=== PATIENT | male | born 1965 | race African-American/Black ===

== ENCOUNTER 2016-09-29 09:30 | Inpatient (IN) ==
[2016-09-29 10:12] LABS: Basophils % 0.3 % (0.0-0.8); Eosinophils # 0.1 10*3/uL (0.0-0.87); Eosinophils % 1.4 % (0.00-10.9); Hematocrit 50.6 VOL% (42.0-52.0); Hemoglobin 15.9 GM/DL (14.0-18.0); Immature Granulocytes % 0.3 %; Immature Granulocytes Absolute 0.01 #; Lymphocytes # 0.9 10*3/uL (1.4-4.0); Lymphocytes % 25.4 % (21.2-54.2); Mean Corpuscular HGB Conc 31.4 GM/DL (32-36); Mean Corpuscular Hemoglobin 23 PG (27-34); Mean Corpuscular Volume 74.5 FL (87-102); Mean Platelet Volume 11.6 FL (9.6-12.0); Monocytes # 0.7 10*3/uL (0.11-0.8); Monocytes % 19.8 % (1.7-12.7); NRBC # 0.04 10*3/uL; Neutrophils # 1.9 10*3/uL (1.4-7.4); Neutrophils % 52.8 % (38.7-73.9); Platelet Count 207 T/CUMM (130-400); Red Blood Count 6.79 MC/CUMM (3.8-5.5); Red Cell Distribution Width 16.8 % (9.3-17.3); White Blood Count 3.6 T/CUMM (4-12)
[2016-09-29 10:18] LABS: Apearance,Urine CLEAR (Clear); Bilirubin,Urine Negative (Negative); Blood, Urine Negative (Negative); Glucose,Urine (UA) Negative (Negative); Hyaline Casts,Urine 4 /LPF (0-3); Ketones,Urine Negative (Negative); Mucus,Urine Occasional /LPF (Occasional); Nitrite,Urine Negative (Negative); Protein,Urine 100 MG/DL; RBC,Urine <1 /HPF (0-4); Squamous Epithelial Cell,Urine Occasional /HPF (0-10); Urine Color Yellow (Yellow); Urine Specific Gravity 1.005 (1.001-1.035); Urine Urobilinogen < 2.0 EU/DL (0.2-1.0); WBC,Urine 1 /HPF (0-6)
[2016-09-29 10:23] LABS: INR 1.1; PT Patient Result 11.4 SECS
--- NOTE | 2016-09-29 10:28 | EKG Report ---
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
[2016-09-29 10:30] LABS: Calcium 9.5 MG/DL (8.5-10.1); Magnesium 1.9 MG/DL (1.8-2.4); Osmolality,Calculated 274.8 MOS/KG (273-304); Potassium 4.2 MMOL/L (3.5-5.1)
[2016-09-29] MEDS ORDERED: ASPIRIN 325 MG TABLET PO STA (10:30)
[2016-09-29 10:31] LABS: Troponin I Only 0.137 NG/ML (0.00-0.045)
[2016-09-29] MEDS ORDERED: ENOXAPARIN 80 MG/0.8 ML SYRINGE SUBCUT STA (10:34)
--- NOTE | 2016-09-29 10:47 | CT Report ---
CT head/brain wo con Indication: Right-sided numbness, [address] BRAIN WITHOUT CONTRAST DLP: 970 mGy*cm. One or more of the following dose reduction techniques was used: Automated exposure control, adjustment of the mA and/or kV according the patient size, or use of iterative reconstruction techniques. Comparison: None. Date of admission: 09/29/2016. Technique: Axial noncontrast CT images of the brain were obtained. Findings: Loss of gomez-white junction with hypoattenuation involves the left occipital lobe. Elsewhere, gomez-white junction is maintained. Basal ganglia structures are intact. No acute hemorrhage, mass or mass effect. No volume loss. No bone lesions. Visualized sinuses and mastoid air cells are clear. Impression: Subacute to chronic infarct left occipital lobe. PROCEDURE INTERPRETED AT [facility] DEPARTMENT OF RADIOLOGY Final Report Signed by: Mo Burnett M.D.
--- NOTE | 2016-09-29 10:47 | XRay Report ---
XR chest 1V portable Indication: Weakness. Chest one view: Heart size and mediastinal contour are normal. Lungs are hypoinflated but generally clear, except for minimal bibasilar atelectasis. Pleural spaces are clear. Bones are intact. Impression: Mild pulmonary hypoinflation with atelectasis. PROCEDURE INTERPRETED AT [facility] DEPARTMENT OF RADIOLOGY Final Report Signed by: Mo Burnett M.D.
[2016-09-29 11:04] LABS: Eosinophils 3 % (0-10); Lymphocytes 27 % (20-55); Segmented Neutrophils 57 % (50-85); Total Cells Counted 100
[2016-09-29 11:09] LABS: Anisocytosis 1+; Hypochromasia 1+; Microcytosis 1+; Ovalocytes Few; Platelet Estimate Normal
--- NOTE | 2016-09-29 11:11 | EKG Report ---
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
--- NOTE | 2016-09-29 11:21 | Emergency Department Note ---
IKeyur Brooke, am scribing for, and in the presence of, Darinel Garcia M.D. 10:29. IRadha Howard T, M.D., personally performed the services described in this documentation, ascribed by Yady Baer in my presence, and it is both accurate and complete . Arrival - Arrival Chief Complaint: Neuro Stated Complaint: whole right side numb ED Nursing Triage Note: Pt c/o numnbess in his right side (face, arm, and leg) x 2 days but worse last night. Also family member reports coughing and dizziness. Mode of Arrival: Ambulatory Limitations: No Limitations Source: Patient, RN Notes Reviewed Time Seen by Provider: 09/29/16 09:46 - History of Present Illness HPI Narrative: Patient is a 51 year old male who presents to the ED with c/o numbness to the right side of his body that started Friday morning. Patient says it felt like he was "dragging" his right leg when walking. Only the 4th and 5th fingers on his hand were numb and he describes it as "my blood not circulating good." Patient says the numbness in the right side of his face is getting better. He is able to move right upper and lower extremities without any problems. Patient says his vision was blurry but the vision is better now. Patient says he was working this weekend and just wanted to wait to see if these symptoms would get better but he decided he needed to come to the ED today. Patient denies having any pain. He has PMHx of HTN and cardiac dysrhythmia. Patient is a smoker. Onset (ago): day(s) (3) Allergies/Adverse Reactions: Allergies Allergy/AdvReac Type Severity Reaction Status Date / Time No Known Allergies Allergy Verified 12/24/15 10:20 Home Medications: Home Medications Medication Instructions Recorded Confirmed Type Atorvastatin [Lipitor] 10 mg PO BEDTIME 09/29/16 09/29/16 History Carvedilol [Coreg] 6.25 mg PO BID 09/29/16 09/29/16 History Furosemide Tab [Lasix Tab] 40 mg PO DAILY 09/29/16 09/29/16 History Lisinopril/Hydrochlorothiazide 1 each PO DAILY 09/29/16 09/29/16 History [Lisinopril-Hctz 10-12.5 mg Tab] Review of System - Review of System 12 point system: reviewed and no additional remarkable complaints except as stated - Review of System Constitutional: Absent: fever Eyes: Present: vision change (blurry but better now) Respiratory: Absent: respiratory distress Skin: Absent: rash Neurological: Present: numbness (right side of body) Medical,Surgical,& Family Hx - Medical History Cardio: History of: Cardiac Dysrhythmia, Hypertension - Family History Family History: Reports;: Family Cancer - Social History Smoking Status: Current every day smoker Exam Vital Signs: Vital Signs Temperature 96.9 F L 09/29/16 09:45 Pulse Rate 95 H 09/29/16 09:45 Respiratory Rate 20 09/29/16 09:45 Blood Pressure 151/130 09/29/16 09:45 O2 Sat by Pulse Oximetry 96 09/29/16 09:36 - General General appearance: alert, in no apparent distress - Head Head exam: Present: atraumatic, normocephalic - Eye Eye exam: Present: normal appearance, PERRL, EOMI - ENT ENT exam: Present: normal exam - Neck Neck exam: Present: normal inspection - Chest Chest inspection: Present: normal inspection, symmetric chest wall rise - Respiratory Respiratory exam: Present: normal lung sounds bilaterally - Cardiovascular Cardiovascular exam: Present: regular rate, normal rhythm, normal heart sounds - Abdominal Exam Abdominal exam: Present: soft. Absent: distention, tenderness - Extremities Exam Extremities exam: Present: normal inspection - Back Exam Back exam: Present: normal inspection - Neurological Exam Neurological exam: Present: alert, oriented X3, CN II-XII intact - Psychiatric Psychiatric exam: Present: normal affect, normal mood - Skin Skin exam: Present: warm, dry, intact, normal color Course Course Narrative: Medical decision making: History exam is consistent with stroke likely due to high blood pressure and A. fib, admitted to hospital service for further evaluation cardiology consult and neurology consult. - Reevaluation(s) Reevaluation #1: Repeat EKG still shows nonspecific ST changes without acute STEMI, A. fib, heart rate about 85. Results - Labs CBC & BMP: 09/29/16 09:49 09/29/16 09:49 Lab Results: I have reviewed the patients labs - EKG EKG results: interpreted by ERMD EKG shows: atrial fibrillation (92HR, nonspecific ST changes) - Diagnostic Findings Procedure: Chest x-ray: image reviewed by me (no acute), CT: report reviewed by me (head: subacute infarct L occ lobe) Disposition Clinical Impression: Cerebrovascular accident Case discussed with: patient Disposition: Still a Patient Condition: Stable Time of Disposition: 11:21
[2016-09-29] MEDS ORDERED: guaiFENesin/DM ER 600-30 MG TABLET PO PRN (11:36)
[2016-09-29] MEDS ORDERED: LABETALOL 20 MG/4 ML SYRINGE IV PRN (11:36)
[2016-09-29] MEDS ORDERED: ONDANSETRON 4 MG/2 ML VIAL IV PRN (11:36)
[2016-09-29] MEDS ORDERED: ACETAMINOPHEN 325 MG TABLET PO PRN (11:36)
--- NOTE | 2016-09-29 11:50 | Hospitalist History & Physical ---
Assessment and Plan - Time spent with patient Time spent with patient: Greater than 30 minutes (1) Subacute left occipital lobe infarct Status: Acute Assessment and plan: Mr. England is a 51-year-old -[place] male with history of hypertension , hyperlipidemia and A. fib admitted by the hospitalist service with subacute left occipital stroke with right sided numbness and weakness, chest congestion, and A. fib with abnormal EKG. Patient is being admitted to telemetry with cardiology consult. Dr. Dennis has seen and examined patient and further recommendations to follow. Subacute stroke/right sided numbness and weakness--patient is stable at this time. We will get neurology consult in the morning, PT OT and speech consult, patient is being started on Eliquis for anticoagulation for further stroke prevention. We will also get ultrasound of the carotids, echo of the heart, and MRI of the brain. We are also ordering hemoglobin A1c, lipid panel, TSH. He was given a therapeutic dose of Lovenox in the ED. Monitor his blood pressure to avoid normotensive to increase perfusion to infarcted part of the brain. A. fib/T-wave abnormality--patient has had A. fib for 2 years and his primary care physician had started him on Coreg. We will add an aspirin and Eliquis now due to his subacute stroke. Will get a cardiology consult for his T-wave abnormality and elevated troponins. We will also get serial EKG and serial troponins as well. Hyperlipidemia--restart home meds and get lipid panel. Mild renal insufficiency--patient will be given hydration to see if this improves or if this is chronic. Patient has no knowledge of any kidney issues. Labs will be repeated in the morning Chest congestion--we will start this patient on some antibiotics, as needed breathing treatments, and Mucinex for his congestion. Current Visit: Yes (2) Hypertension Status: Acute Current Visit: Yes (3) Hyperlipidemia Status: Acute Current Visit: Yes (4) Renal insufficiency, mild Status: Acute Current Visit: Yes (5) Chest congestion Status: Acute Current Visit: Yes (6) Electrocardiogram showing T wave abnormalities Status: Acute Current Visit: Yes (7) A-fib Status: Acute Current Visit: Yes (8) Elevated troponin Status: Acute Current Visit: Yes History of Present Illness Chief complaint: Right sided weakness and numbness History of present illness: Mr. England is a 51 year old male with history of A. fib, hypertension, tobacco abuse and hyperlipidemia presenting to the ED with a 2-3 day history of weakness and numbness of the right arm and leg. Patient states he got off work Friday night and slept all day and most of Friday. 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 He states Friday when he woke up he was uncoordinated on his right leg and right arm and significantly weaker. He is also having some chest congestion and a cough that he took some decongestants for. Patient denies headache but he states he is also having some numbness right around the right mouth area. He is having no problems swallowing, no complaints of chest pain, but he is having some shortness of breath. No complaints of abdominal pain, diarrhea, constipation or lower extremity edema. He has A. fib on the monitor with rate controlled. His blood pressures are elevated at 151/130 and he did take his blood pressure medicines this morning. His labs are significant for a creatinine of 1.4 and troponin of 0.137. Head CT shows a subacute to chronic infarct of the left occipital lobe. His chest x- ray shows mild pulmonary hypoinflation with atelectasis. His first EKG showed A. fib with lateral myocardial infarction, recent acute PR. Repeat EKG shows nonspecific T-wave abnormality in A. fib. Upon exam, patient does have some coarse sounds bilaterally that improved after cough, heart irregularly irregular with rate controlled, good strength but uncoordinated on his right upper and lower extremities. Remainder of his neuro exam is normal. After discussion with Dr. Dennis the hospitalist and Dr. Garcia the ED physician, it was agreed patient would be admitted for further evaluation and treatment. Home Medications Medication Instructions Recorded Confirmed Type Atorvastatin [Lipitor] 10 mg PO BEDTIME 09/29/16 09/29/16 History Carvedilol [Coreg] 6.25 mg PO BID 09/29/16 09/29/16 History Furosemide Tab [Lasix Tab] 40 mg PO DAILY 09/29/16 09/29/16 History Lisinopril/Hydrochlorothiazide 1 each PO DAILY 09/29/16 09/29/16 History [Lisinopril-Hctz 10-12.5 mg Tab] Allergies Allergy/AdvReac Type Severity Reaction Status Date / Time No Known Allergies Allergy Verified 12/24/15 10:20 Medical,Surgical,& Family Hx - Medical History Cardio: History of: Cardiac Dysrhythmia, Hypertension Endocrine: History of: Dyslipidemia - Surgical History Additional Surgical History: Debridement of left lower extremity due to injury - Family History Family History: Reports;: Family Cancer - Social History Smoking Status: Current every day smoker Frequency of Alcohol Use: Occasionally Type of Drug Use: Marijuana Marital Status: Single Lives With:: Alone Functional capacity: independent ambulation Review of systems: A complete 10 system review of systems was obtained and pertinent positives and negatives per HPI Exam - Constitutional Vitals: Period Temp Pulse Resp BP Sys/Castellanos Pulse Ox Last 24 Hr 96.9 F-96.9 F 95-95 18-20 151-151/130-130 96 Exam: Constitutional System: No distress. No tremulousness. Head: Normocephalic, atraumatic. Ears, Nose and Throat System: No evidence of Otitis or Mastoiditis. No epistaxis or discharge Eyes System: Pupils equal, round, and reactive. Extraocular muscles intact. Neck: Supple, without adenopathy, No jugular venous distention. No thyromegaly, neck mass, or prior surgery apparent. Respiratory System: Chest coarse bilaterally to auscultation that clears with cough. Cardiovascular System: Heart with irregularly irregular rate and rhythm. No murmur. GI System: Abdomen soft, nontender. Normo active bowel sounds present. Multiple underwater welder spots Musculoskeletal System: limbs with no pedal edema. Full distal pulses. Neurological System: Numbness on the right upper and lower extremity sensory deficit. No aphasia, cranial nerves II through XII intact Psychiatric System: Conversation is rational Results - Labs CBC & BMP: 09/29/16 09:49 09/29/16 09:49 Lab Results: I have reviewed the past 24 hour labs - EKG EKG shows: atrial fibrillation - Impressions EKG done at 1027 shows A. fib with lateral PR acute. Second EKG done at 1110 shows A. fib with nonspecific T-wave abnormality - Diagnostic Findings Procedure: Chest x-ray: report reviewed by me (Mild pulmonary hypoinflation with atelectasis), CT - chest: report reviewed by me (CT of the head shows subacute to chronic infarct left occipital lobe) Quality Measures - Stroke Onset of Symptoms Date: 09/27/16 Onset of Symptoms Time: 08:00
[2016-09-29] MEDS ORDERED: ENOXAPARIN 40 MG/0.4 ML SYRINGE SUBCUT SCH (12:00)
[2016-09-29 12:17] LABS: Barbiturates Screen,Urine Negative (Negative); Benzodiazepines Screen,Urine Negative (Negative); Cannabinoid Screen,Urine Positive (Negative); Opiate Screen,Urine Positive (Negative); Phencyclidine Screen,Urine Negative (Negative)
[2016-09-29] MEDS: ALBUTEROL/IPRATROPIUM 3 ML NEB RESP TX PRN (12:22)
[2016-09-29] MEDS ORDERED: ASPIRIN 325 MG TABLET ONE (12:24)
[2016-09-29] MEDS ORDERED: ENOXAPARIN 80 MG/0.8 ML SYRINGE SUBCUT ONE (12:24)
[2016-09-29] MEDS ORDERED: SODIUM CHLORIDE 0.9% 1,000 ML IV SCH (13:00)
--- NOTE | 2016-09-29 13:46 | Ultrasound Report ---
US carotid duplex BI Indication: Stroke. CAROTID ULTRASOUND Comparison: None. Findings: Grayscale, color Doppler and pulsed Doppler interrogation of the carotid and vertebral arteries performed. Severity of stenosis based on flow velocity measurements using NASCET criteria. Distal right ICA diameter: 5.5 mm Distal left ICA diameter: 5.6 mm Peak systolic flow velocities in centimeters per second are as follows: Right: CCA: 29 cm/s Proximal ICA: 45 Distal ICA: 46 ICA/CCA ratio: 1.6 Left: CCA: 44 cm/s Proximal ICA: 23 Distal ICA: 75 ICA/CCA ratio: 1.7 External carotid arteries: Both are patent with antegrade flow. Vertebral arteries: Both are patent with antegrade flow. Grayscale and color Doppler images: No significant focal plaque deposition identified, with normal color Doppler flow present. Pulse Doppler waveform interrogation: No significant spectral broadening. Impression: No hemodynamically significant stenosis either ICA origin. PROCEDURE INTERPRETED AT [facility] DEPARTMENT OF RADIOLOGY Final Report Signed by: Mo Burnett M.D.
--- NOTE | 2016-09-29 17:31 | Cardiology Consult Note ---
Assessment and Plan (1) A-fib Status: Acute Assessment and plan: 1. 51-year-old BM smoker with uncontrolled hypertension, long history of atrial fibrillation, with decreased coordination on the right side and subacute left stroke on CT scan 2. Atrial fibrillation rate is reasonably controlled, will continue to monitor on Coreg 3. Given hypertension with BP systolic over 160, would add low-dose amlodipine 2.5 twice daily; neurology is consulted. 4. Would hold aspirin and Lovenox given he is now on Eliquis full dose 5. Check TSH, electrolytes, and lipid panel 6. Elevated BNP noted; this is most likely related to his having some RVR for a while associated with a stroke 7. Check echocardiogram in the morning Current Visit: Yes (2) Cerebrovascular accident Status: Acute Current Visit: Yes (3) Hypertension Status: Acute Current Visit: Yes History of Present Illness - Consult Narrative History of present illness: Mr. England is a 51 year old male who presented yesterday with poor coordination of his right side and was found to have left sided CVA on CT. He has had atrial fibrillation for many years. He denies any history of blood clots or bleeding problems before. He denies being on anticoagulation "I do not think so". He has not had chest pain or previous cardiac problems other than his atrial fibrillation. 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 He is not having shortness of breath. CC: Patrick Dennis MD - Home Medications and Allergies Home Medications: Home Medications Medication Instructions Recorded Confirmed Type Atorvastatin [Lipitor] 10 mg PO BEDTIME 09/29/16 09/29/16 History Carvedilol [Coreg] 6.25 mg PO BID 09/29/16 09/29/16 History Furosemide Tab [Lasix Tab] 40 mg PO DAILY 09/29/16 09/29/16 History Lisinopril/Hydrochlorothiazide 1 each PO DAILY 09/29/16 09/29/16 History [Lisinopril-Hctz 10-12.5 mg Tab] Allergies/Adverse Reactions: Allergies Allergy/AdvReac Type Severity Reaction Status Date / Time No Known Allergies Allergy Verified 12/24/15 10:20 Medical,Surgical,& Family Hx - Medical History Cardio: History of: Cardiac Dysrhythmia, Hypertension Endocrine: History of: Dyslipidemia - Family History Family History: Reports;: Family Cancer - Social History Smoking Status: Current every day smoker Frequency of Alcohol Use: Occasionally Type of Drug Use: Opiates, Marijuana Physical Examination Vital Signs Temp Pulse Resp BP Pulse Ox 96.9 F L 95 H 20 151/130 96 09/29/16 09:36 09/29/16 09:36 09/29/16 09:36 09/29/16 09:36 09/29/16 09:36 General: Present: Appears Well, No Apparent Distress, Other (He denies slurred speech but it seems a little bit off, and his memory is a little off?) Neck: Present: Supple Neck, No JVD/HJR Cardiac: Present: Irregularly Regular. Absent: Systolic Murmur, Diastolic Murmur Lungs: Present: Scattered Rhonchi. Absent: Wheezes Abdomen: Present: Soft, Non-Tender Extremities: Present: Other (Decreased right-sided coordination). Absent: Edema , Cool Result/EKG - Labs CBC & BMP: 09/29/16 09:49 09/29/16 09:49 Labs: Laboratory Results - last 24 hr 09/29/16 09/29/16 09/29/16 09:49 09:49 09:49 WBC 3.6 L RBC 6.79 H Hgb 15.9 Hct 50.6 MCV 74.5 L MCH 23 L MCHC 31.4 L RDW 16.8 Plt Count 207 MPV 11.6 Neut % (Auto) 52.8 Lymph % (Auto) 25.4 Milam % (Auto) 19.8 H Eos % (Auto) 1.4 Baso % (Auto) 0.3 Neut # (Auto) 1.9 Lymph # (Auto) 0.9 L [place] # (Auto) 0.7 Eos # (Auto) 0.1 Baso # (Auto) 0.0 Total Counted 100 Immature Gran % 0.3 Nucleated RBC % 1.1 Immature Gran # 0.01 Segmented Neutrophils 57 Lymphocytes 27 Monocytes 12 Eosinophils 3 Basophils 1.0 H Nucleated RBCs # 0.04 Platelet Estimate Normal Hypochromasia 1+ Anisocytosis 1+ Microcytosis 1+ Ovalocytes Few Morphology Comment INR 1.1 PT Patient/Control Mix 11.4 Sodium Potassium Chloride Carbon Dioxide Anion Gap BUN Creatinine GFR Calculation BUN/Creatinine Ratio Glucose Calculated Osmolality Calcium Magnesium Troponin I Urine Color Yellow Urine Appearance Clear Urine pH 5.0 Ur Specific [place] 1.005 Urine Protein 100 Urine Glucose (UA) Negative Urine Ketones Negative Urine Blood Negative Urine Nitrate Negative Urine Bilirubin Negative Urine Urobilinogen < 2.0 H Urine Leukocytes Negative Urine RBC <1 Urine WBC 1 Ur Squamous Epith Cells Occasional Hyaline Casts 4 Urine Mucus Occasional Ur Culture Indicated? Not indicated Urine Opiates Screen Ur Barbiturates Screen Ur Phencyclidine Scrn U Amphetamine/Methamph U Benzodiazepines Scrn U Cocaine Metab Screen U Cannabinoids Screen 09/29/16 09/29/16 09/29/16 09:49 13:59 Unknown WBC RBC Hgb Hct MCV MCH MCHC RDW Plt Count MPV Neut % (Auto) Lymph % (Auto) [place] % (Auto) Eos % (Auto) Baso % (Auto) Neut # (Auto) Lymph # (Auto) [place] # (Auto) Eos # (Auto) Baso # (Auto) Total Counted Immature Gran % Nucleated RBC % Immature Gran # Segmented Neutrophils Lymphocytes Monocytes Eosinophils Basophils Nucleated RBCs # Platelet Estimate Hypochromasia Anisocytosis Microcytosis Ovalocytes Morphology Comment INR PT Patient/Control Mix Sodium 137 Potassium 4.2 Chloride 99 Carbon Dioxide 34 H Anion Gap 8.2 BUN 14 Creatinine 1.40 H GFR Calculation 74 BUN/Creatinine Ratio 10.00 Glucose 112 H Calculated Osmolality 274.8 Calcium 9.5 Magnesium 1.9 Troponin I 0.137 H 0.115 H Urine Color Urine Appearance Urine pH Ur Specific [place] Urine Protein Urine Glucose (UA) Urine Ketones Urine Blood Urine Nitrate Urine Bilirubin Urine Urobilinogen Urine Leukocytes Urine RBC Urine WBC Ur Squamous Epith Cells Hyaline Casts Urine Mucus Ur Culture Indicated? Urine Opiates Screen Positive H Ur Barbiturates Screen Negative Ur Phencyclidine Scrn Negative U Amphetamine/Methamph Negative U Benzodiazepines Scrn Negative U Cocaine Metab Screen Negative U Cannabinoids Screen Positive H Quality Measures - Stroke Onset of Symptoms Date: 09/27/16 Onset of Symptoms Time: 08:00
[2016-09-29] MEDS: amLODIPine 2.5 MG TABLET PO SCH ×2 (17:53→21:29)
[2016-09-29] MEDS: CARVEDILOL 6.25 MG TABLET PO SCH (21:29)
[2016-09-29] MEDS: ATORVASTATIN 10 MG TABLET PO SCH (21:29)
[2016-09-29] MEDS: BENZONATATE 100 MG CAPSULE PO PRN (21:29)
[2016-09-30 04:31] LABS: Basophils % 0.5 % (0.0-0.8); Eosinophils % 0.8 % (0.00-10.9); Hematocrit 49.4 VOL% (42.0-52.0); Hemoglobin 15.4 GM/DL (14.0-18.0); Lymphocytes # 1.9 10*3/uL (1.4-4.0); Lymphocytes % 49.2 % (21.2-54.2); Mean Corpuscular HGB Conc 31.2 GM/DL (32-36); Mean Corpuscular Hemoglobin 23 PG (27-34); Mean Corpuscular Volume 74.1 FL (87-102); Mean Platelet Volume 11.2 FL (9.6-12.0); Monocytes # 0.8 10*3/uL (0.11-0.8); Monocytes % 19.7 % (1.7-12.7); NRBC # 0.03 10*3/uL; Neutrophils # 1.2 10*3/uL (1.4-7.4); Neutrophils % 29.8 % (38.7-73.9); Platelet Count 206 T/CUMM (130-400); Red Blood Count 6.67 MC/CUMM (3.8-5.5); Red Cell Distribution Width 16.3 % (9.3-17.3); White Blood Count 3.9 T/CUMM (4-12)
[2016-09-30 05:03] LABS: Calcium 9.1 MG/DL (8.5-10.1); Eosinophils 1 % (0-10); Lymphocytes 50 % (20-55); Osmolality,Calculated 277.5 MOS/KG (273-304); Potassium 4.8 MMOL/L (3.5-5.1); Segmented Neutrophils 26 % (50-85); Total Cells Counted 100
[2016-09-30 05:04] LABS: Hypochromasia 1+; Microcytosis 1+; Platelet Estimate Adequate
[2016-09-30 05:20] LABS: Risk Ratio 4.09; Thyroid Stimulating Hormone 0.916 uIU/ml (0.358-3.74); VLDL CHOLESTEROL 45.2 MG/DL
[2016-09-30] MEDS: LISINOPRIL/HCTZ 10-12.5 MG TABLET PO SCH (08:24)
[2016-09-30] MEDS: CARVEDILOL 6.25 MG TABLET PO SCH (08:24)
[2016-09-30] MEDS: AZITHROMYCIN 250 MG TABLET PO SCH (08:24)
[2016-09-30] MEDS: amLODIPine 2.5 MG TABLET PO SCH ×2 (08:25→21:06)
[2016-09-30] MEDS: PANTOPRAZOLE 40 MG TABLET PO SCH (08:25)
[2016-09-30] MEDS: APIXABAN 5 MG TABLET PO SCH ×2 (08:29→21:06)
[2016-09-30] MEDS ORDERED: ASPIRIN 325 MG TABLET PO SCH (09:00)
--- NOTE | 2016-09-30 10:39 | Cardiology Progress Note ---
<Lacy Strauss E - Last Filed: 09/30/16 10:12> Assessment and Plan - Time spent with patient Time spent with patient: Less than 30 minutes (1) Atrial fibrillation Status: Acute Assessment and plan: See plan of care listed below. Current Visit: Yes (2) Cerebrovascular accident Status: Acute Assessment and plan: See plan of care listed below. Current Visit: Yes (3) Hypertension Status: Chronic Assessment and plan: See plan of care listed below. Current Visit: Yes (4) Tobacco abuse Status: Chronic Assessment and plan: See plan of care listed below. Current Visit: Yes (5) Cannabis use disorder, mild, abuse Status: Chronic Assessment and plan: See plan of care listed below. Current Visit: Yes (6) Hyperlipidemia Status: Acute Assessment and plan: See plan of care listed below. Current Visit: Yes Cardiology - PN: Subj Interval history: Certified Orthotist/Pedorthist: new to Dr. Greenberg Mr. England is a 51-year-old -[place] male smoker with uncontrolled hypertension and atrial fibrillation who presented to the hospital on 09/28/2016 with poor coordination of his right side and was found to have a subacute left stroke on CT scan. We are consulted to see him due to atrial fibrillation and stroke. He has not previously been on anticoagulation. He was started on full dose Eliquis for stroke prevention. He has been on Coreg 6.25 mg p.o. twice daily at home. His TSH was normal. He did have some slight elevation of troponins. Lipid panel was checked and revealed triglycerides 226, cholesterol 184, LDL 100, HDL 45. Creatinine is 1.3, potassium 4.8, magnesium 2.0. Upon review of his telemetry rhythms, he did have some elevated rates in the 150s-160s yesterday. Rates today have been somewhat better controlled, mostly in the 90s-100s. He denies any chest pain, shortness of breath, palpitations. He does complain of cough and chest congestion. He does have a productive cough of white sputum. Blood cell count is 3.9. Has been afebrile since admission. He does have as needed breathing treatments ordered as well as Tessalon Perles for cough and he has also been started on a Z-Дмитрий. ASSESSMENT/PLAN: 1. ATRIAL FIBRILLATION -unsure whether this is chronic or paroxysmal. He has never been seen before in our clinic and the only other EKG on file at [facility] shows atrial fibrillation. Echocardiogram is pending. We will increase his dose of beta-joaquim to try to better control his heart rate. May consider changing his Norvasc to Cardizem if his heart rate remains difficult to control. Will further discuss with Dr. French and await his recommendations. 2. CEREBROVASCULAR ACCIDENT -neurology has been consulted. He was started on Eliquis 5 mg p.o. twice daily. Physical and Occupational Therapy were consulted. 3. HYPERTENSION -this has been uncontrolled. We will continue to monitor and adjust medications accordingly. 4. TOBACCO ABUSE -greater than 5 minutes was spent discussing the need for total tobacco cessation and the patient agrees. He reports he does not think this will be a problem for him. 5. CANNABIS USE -he agrees he must stop all smoking. 6. HYPERLIPIDEMIA -continue lipid lowering agent. Exam (Progress Note) - Constitutional Vitals: Period Temp Pulse Resp BP Sys/Castellanos Pulse Ox Last 24 Hr 96.8 F-98.7 F 74-97 14-23 135-168/80-134 94-99 Exam: General: Present: Appears Well, No Apparent Distress. Pleasant and cooperative. Appears comfortable. HEENT: Present: PERRL, Normocephaly, atraumatic. Mucus Membranes Moist. No jaundice noted. Conjunctiva moist and clear, sclerae anicteric Neck: Present: Supple Neck, Midline Trachea, No Masses, No Bruit, No tenderness Cardiac: Present: Irregular Rate and Rhythm, No Murmur Lungs: Present: Scattered rhonchi anteriorly, cleared with cough. Otherwise clear to auscultation bilaterally, no wheeze, rales. Neuro: Present: Awake, alert, and oriented x3. Moves all extremities well without hemiparesis or paralysis. Decreased right-sided coordination grossly Intact. Absent: Resting Tremor, Essential Tremor Abdomen: Present: Soft, Active Bowel Sounds, No Masses, Non-Tender, nondistended. No abdominal bruit or thrill noted. Skin: Present: Clear. Absent: Rash, No skin breakdown. Back: Normal inspection, no vertebral tenderness. Musculoskeletal: Present: No Fluid Collection, No Pain, Normal Range of Motion Extremities: Present: Normal Gait, No Clubbing, No Cyanosis, Upper Extr. Pulses 2+, Lower Extr. Pulses 2+, No edema. Capillary refill less than 3 seconds. Result/EKG - Labs CBC & BMP: 09/30/16 04:11 09/30/16 04:11 Lab Results: I have reviewed the past 24 hour labs Labs: Laboratory Results - last 24 hr 09/29/16 09/29/16 09/29/16 09:49 09:49 09:49 WBC 3.6 L RBC 6.79 H Hgb 15.9 Hct 50.6 MCV 74.5 L MCH 23 L MCHC 31.4 L RDW 16.8 Plt Count 207 MPV 11.6 Neut % (Auto) 52.8 Lymph % (Auto) 25.4 [place] % (Auto) 19.8 H Eos % (Auto) 1.4 Baso % (Auto) 0.3 Neut # (Auto) 1.9 Lymph # (Auto) 0.9 L [place] # (Auto) 0.7 Eos # (Auto) 0.1 Baso # (Auto) 0.0 Total Counted 100 Immature Gran % 0.3 Nucleated RBC % 1.1 Immature Gran # 0.01 Segmented Neutrophils 57 Lymphocytes 27 Monocytes 12 Eosinophils 3 Basophils 1.0 H Nucleated RBCs # 0.04 Platelet Estimate Normal Hypochromasia 1+ Anisocytosis 1+ Microcytosis 1+ Ovalocytes Few Morphology Comment INR 1.1 PT Patient/Control Mix 11.4 Sodium Potassium Chloride Carbon Dioxide Anion Gap BUN Creatinine GFR Calculation BUN/Creatinine Ratio Glucose Hemoglobin A1c Calculated Osmolality Calcium Magnesium Troponin I Triglycerides Cholesterol LDL Cholesterol VLDL Cholesterol HDL Cholesterol Heart Disease Risk Ratio TSH 3rd Generation Urine Color Yellow Urine Appearance Clear Urine pH 5.0 Ur Specific [place] 1.005 Urine Protein 100 Urine Glucose (UA) Negative Urine Ketones Negative Urine Blood Negative Urine Nitrate Negative Urine Bilirubin Negative Urine Urobilinogen < 2.0 H Urine Leukocytes Negative Urine RBC <1 Urine WBC 1 Ur Squamous Epith Cells Occasional Hyaline Casts 4 Urine Mucus Occasional Ur Culture Indicated? Not indicated Urine Opiates Screen Ur Barbiturates Screen Ur Phencyclidine Scrn U Amphetamine/Methamph U Benzodiazepines Scrn U Cocaine Metab Screen U Cannabinoids Screen 09/29/16 09/29/16 09/29/16 09:49 13:59 18:19 WBC RBC Hgb Hct MCV MCH MCHC RDW Plt Count MPV Neut % (Auto) Lymph % (Auto) [place] % (Auto) Eos % (Auto) Baso % (Auto) Neut # (Auto) Lymph # (Auto) [place] # (Auto) Eos # (Auto) Baso # (Auto) Total Counted Immature Gran % Nucleated RBC % Immature Gran # Segmented Neutrophils Lymphocytes Monocytes Eosinophils Basophils Nucleated RBCs # Platelet Estimate Hypochromasia Anisocytosis Microcytosis Ovalocytes Morphology Comment INR PT Patient/Control Mix Sodium 137 Potassium 4.2 Chloride 99 Carbon Dioxide 34 H Anion Gap 8.2 BUN 14 Creatinine 1.40 H GFR Calculation 74 BUN/Creatinine Ratio 10.00 Glucose 112 H Hemoglobin A1c Calculated Osmolality 274.8 Calcium 9.5 Magnesium 1.9 Troponin I 0.137 H 0.115 H 0.120 H Triglycerides Cholesterol LDL Cholesterol VLDL Cholesterol HDL Cholesterol Heart Disease Risk Ratio TSH 3rd Generation Urine Color Urine Appearance Urine pH Ur Specific [place] Urine Protein Urine Glucose (UA) Urine Ketones Urine Blood Urine Nitrate Urine Bilirubin Urine Urobilinogen Urine Leukocytes Urine RBC Urine WBC Ur Squamous Epith Cells Hyaline Casts Urine Mucus Ur Culture Indicated? Urine Opiates Screen Ur Barbiturates Screen Ur Phencyclidine Scrn U Amphetamine/Methamph U Benzodiazepines Scrn U Cocaine Metab Screen U Cannabinoids Screen 09/29/16 09/29/16 09/30/16 21:25 Unknown 04:11 WBC RBC Hgb Hct MCV MCH MCHC RDW Plt Count MPV Neut % (Auto) Lymph % (Auto) [place] % (Auto) Eos % (Auto) Baso % (Auto) Neut # (Auto) Lymph # (Auto) [place] # (Auto) Eos # (Auto) Baso # (Auto) Total Counted Immature Gran % Nucleated RBC % Immature Gran # Segmented Neutrophils Lymphocytes Monocytes Eosinophils Basophils Nucleated RBCs # Platelet Estimate Hypochromasia Anisocytosis Microcytosis Ovalocytes Morphology Comment INR PT Patient/Control Mix Sodium Potassium Chloride Carbon Dioxide Anion Gap BUN Creatinine GFR Calculation BUN/Creatinine Ratio Glucose Hemoglobin A1c Calculated Osmolality Calcium Magnesium Troponin I 0.128 H Triglycerides 226 H Cholesterol 184 LDL Cholesterol 100.0 VLDL Cholesterol 45.2 HDL Cholesterol 45 Heart Disease Risk Ratio 4.09 TSH 3rd Generation 0.916 Urine Color Urine Appearance Urine pH Ur Specific [place] Urine Protein Urine Glucose (UA) Urine Ketones Urine Blood Urine Nitrate Urine Bilirubin Urine Urobilinogen Urine Leukocytes Urine RBC Urine WBC Ur Squamous Epith Cells Hyaline Casts Urine Mucus Ur Culture Indicated? Urine Opiates Screen Positive H Ur Barbiturates Screen Negative Ur Phencyclidine Scrn Negative U Amphetamine/Methamph Negative U Benzodiazepines Scrn Negative U Cocaine Metab Screen Negative U Cannabinoids Screen Positive H 09/30/16 09/30/16 09/30/16 04:11 04:11 04:11 WBC 3.9 L RBC 6.67 H Hgb 15.4 Hct 49.4 MCV 74.1 L MCH 23 L MCHC 31.2 L RDW 16.3 Plt Count 206 MPV 11.2 Neut % (Auto) 29.8 L Lymph % (Auto) 49.2 [place] % (Auto) 19.7 H Eos % (Auto) 0.8 Baso % (Auto) 0.5 Neut # (Auto) 1.2 L Lymph # (Auto) 1.9 [place] # (Auto) 0.8 Eos # (Auto) 0.0 Baso # (Auto) 0.0 Total Counted 100 Immature Gran % 0.0 Nucleated RBC % 0.8 Immature Gran # 0.00 Segmented Neutrophils 26 L Lymphocytes 50 Monocytes 23 H Eosinophils 1 Basophils Nucleated RBCs # 0.03 Platelet Estimate Adequate Hypochromasia 1+ Anisocytosis Microcytosis 1+ Ovalocytes Morphology Comment INR PT Patient/Control Mix Sodium 139 Potassium 4.8 Chloride 103 Carbon Dioxide 30 Anion Gap 10.8 BUN 15 Creatinine 1.30 GFR Calculation 80 BUN/Creatinine Ratio 11.00 Glucose 98 Hemoglobin A1c 6.4 H Calculated Osmolality 277.5 Calcium 9.1 Magnesium 2.0 Troponin I Triglycerides Cholesterol LDL Cholesterol VLDL Cholesterol HDL Cholesterol Heart Disease Risk Ratio TSH 3rd Generation Urine Color Urine Appearance Urine pH Ur Specific [place] Urine Protein Urine Glucose (UA) Urine Ketones Urine Blood Urine Nitrate Urine Bilirubin Urine Urobilinogen Urine Leukocytes Urine RBC Urine WBC Ur Squamous Epith Cells Hyaline Casts Urine Mucus Ur Culture Indicated? Urine Opiates Screen Ur Barbiturates Screen Ur Phencyclidine Scrn U Amphetamine/Methamph U Benzodiazepines Scrn U Cocaine Metab Screen U Cannabinoids Screen - EKG EKG results: interpreted by me EKG shows: atrial fibrillation Quality Measures - Stroke Onset of Symptoms Date: 09/27/16 Onset of Symptoms Time: 08:00 <Gloria French - Last Filed: 09/30/16 13:25> Assessment and Plan (1) Subacute left occipital lobe infarct Status: Acute Assessment and plan: Subacute Current Visit: Yes (2) Hypertension Status: Chronic Current Visit: Yes Qualifiers: Hypertension type: essential hypertension Qualified Code(s): I10 - Essential (primary) hypertension (3) Hyperlipidemia Status: Chronic Current Visit: Yes Qualifiers: Hyperlipidemia type: mixed hyperlipidemia Qualified Code(s): E78.2 - Mixed hyperlipidemia (4) Renal insufficiency, mild Status: Acute Current Visit: Yes (5) Atrial fibrillation Status: Acute Assessment and plan: This is a persistent HPI known about for at least 5 years. I am waiting on the transthoracic echo to make decisions he would at least need anticoagulation and rate control. Anticoagulation for a minimum of 3 months if rastafari of normal sinus rhythm is attempted he can then potentially be off. For now recommend anticoagulation for life. Current Visit: Yes Qualifiers: Atrial fibrillation type: persistent Qualified Code(s): I48.1 - Persistent atrial fibrillation (6) Tobacco abuse Status: Chronic Current Visit: Yes (7) Cannabis use disorder, mild, abuse Status: Chronic Current Visit: Yes Cardiology - PN: Subj Interval history: History of is a 51-year-old gentleman with known atrial fibrillation for approximately last 5 years. He came complaining of productive sputum and shortness of breath was found to have positive urine drug screen for cannabis we are asked to see for atrial fibrillation. We ordered a transthoracic echocardiogram yesterday is still not been done. His rate is controlled at this time given his now new stroke he will need to be on anticoagulation permanently this puts his CHADS score well above 2. Also discussed with him about smoking. I saw and examined with Carlos A Exam (Progress Note) - Constitutional Vitals: Period Temp Pulse Resp BP Sys/Castellanos Pulse Ox Last 24 Hr 96.8 F-98.7 F 74-95 14-22 135-166/80-111 94-95 Exam: I cannot appreciate murmur he does have diffuse scattered rhonchi that appear to be slightly worse on the left. The above physical exam as documented Result/EKG - Labs CBC & BMP: 09/30/16 04:11 09/30/16 04:11 Labs: Laboratory Results - last 24 hr 09/29/16 09/29/16 09/29/16 13:59 18:19 21:25 WBC RBC Hgb Hct MCV MCH MCHC RDW Plt Count MPV Neut % (Auto) Lymph % (Auto) [place] % (Auto) Eos % (Auto) Baso % (Auto) Neut # (Auto) Lymph # (Auto) [place] # (Auto) Eos # (Auto) Baso # (Auto) Total Counted Immature Gran % Nucleated RBC % Immature Gran # Segmented Neutrophils Lymphocytes Monocytes Eosinophils Nucleated RBCs # Platelet Estimate Hypochromasia Microcytosis Morphology Comment Sodium Potassium Chloride Carbon Dioxide Anion Gap BUN Creatinine GFR Calculation BUN/Creatinine Ratio Glucose Hemoglobin A1c Calculated Osmolality Calcium Magnesium Troponin I 0.115 H 0.120 H 0.128 H Triglycerides Cholesterol LDL Cholesterol VLDL Cholesterol HDL Cholesterol Heart Disease Risk Ratio TSH 3rd Generation 09/30/16 09/30/16 09/30/16 04:11 04:11 04:11 WBC 3.9 L RBC 6.67 H Hgb 15.4 Hct 49.4 MCV 74.1 L MCH 23 L MCHC 31.2 L RDW 16.3 Plt Count 206 MPV 11.2 Neut % (Auto) 29.8 L Lymph % (Auto) 49.2 [place] % (Auto) 19.7 H Eos % (Auto) 0.8 Baso % (Auto) 0.5 Neut # (Auto) 1.2 L Lymph # (Auto) 1.9 [place] # (Auto) 0.8 Eos # (Auto) 0.0 Baso # (Auto) 0.0 Total Counted 100 Immature Gran % 0.0 Nucleated RBC % 0.8 Immature Gran # 0.00 Segmented Neutrophils 26 L Lymphocytes 50 Monocytes 23 H Eosinophils 1 Nucleated RBCs # 0.03 Platelet Estimate Adequate Hypochromasia 1+ Microcytosis 1+ Morphology Comment Sodium Potassium Chloride Carbon Dioxide Anion Gap BUN Creatinine GFR Calculation BUN/Creatinine Ratio Glucose Hemoglobin A1c 6.4 H Calculated Osmolality Calcium Magnesium Troponin I Triglycerides 226 H Cholesterol 184 LDL Cholesterol 100.0 VLDL Cholesterol 45.2 HDL Cholesterol 45 Heart Disease Risk Ratio 4.09 TSH 3rd Generation 0.916 09/30/16 04:11 WBC RBC Hgb Hct MCV MCH MCHC RDW Plt Count MPV Neut % (Auto) Lymph % (Auto) [place] % (Auto) Eos % (Auto) Baso % (Auto) Neut # (Auto) Lymph # (Auto) [place] # (Auto) Eos # (Auto) Baso # (Auto) Total Counted Immature Gran % Nucleated RBC % Immature Gran # Segmented Neutrophils Lymphocytes Monocytes Eosinophils Nucleated RBCs # Platelet Estimate Hypochromasia Microcytosis Morphology Comment Sodium 139 Potassium 4.8 Chloride 103 Carbon Dioxide 30 Anion Gap 10.8 BUN 15 Creatinine 1.30 GFR Calculation 80 BUN/Creatinine Ratio 11.00 Glucose 98 Hemoglobin A1c Calculated Osmolality 277.5 Calcium 9.1 Magnesium 2.0 Troponin I Triglycerides Cholesterol LDL Cholesterol VLDL Cholesterol HDL Cholesterol Heart Disease Risk Ratio TSH 3rd Generation
--- NOTE | 2016-09-30 12:58 | Hospitalist Progress Note ---
Assessment and Plan (1) Cerebrovascular accident Status: Acute Assessment and plan: Patient started on Eliquis. Continue beta-joaquim and statin. Norvasc was added for improved blood pressure control. Cardiology and neurology following. PT OT consulted. MRI pending. Echo cardiogram pending. Carotids without significant stenosis. Current Visit: Yes (2) Subacute left occipital lobe infarct Status: Acute Current Visit: Yes (3) Hypertension Status: Chronic Current Visit: Yes Qualifiers: Hypertension type: essential hypertension Qualified Code(s): I10 - Essential (primary) hypertension (4) Hyperlipidemia Status: Chronic Current Visit: Yes Qualifiers: Hyperlipidemia type: mixed hyperlipidemia Qualified Code(s): E78.2 - Mixed hyperlipidemia (5) A-fib Status: Acute Assessment and plan: Rate controlled. Anticoagulated with Eliquis. Current Visit: Yes Qualifiers: Atrial fibrillation type: chronic Qualified Code(s): I48.2 - Chronic atrial fibrillation (6) Tobacco abuse Status: Chronic Current Visit: Yes (7) Cannabis use disorder, mild, abuse Status: Chronic Current Visit: Yes Hospitalist: Subjective Interval history: Patient seen and examined. No acute events overnight. Case discussed with nursing staff. Labs reviewed. Patient reports some improvement in his symptoms since admission. Exam - Constitutional Vitals: Period Temp Pulse Resp BP Sys/Castellanos Pulse Ox Last 24 Hr 96.8 F-98.7 F 74-95 14-22 135-166/80-111 94-95 Exam: Constitutional System: No distress. No tremulousness. Head: Normocephalic, atraumatic. Ears, Nose and Throat System: No pain or tenderness. No epistaxis or discharge Eyes System: Pupils equal, round, and reactive. Extraocular muscles intact. Neck: Supple, without adenopathy, No jugular venous distention. No thyromegaly, neck mass, or prior surgery apparent. Respiratory System: Chest clear to auscultation. Cardiovascular System: Heart with regular rate and rhythm. No murmur. GI System: Abdomen soft, nontender. Normo active bowel sounds present. Musculoskeletal System: limbs with no pedal edema. Full distal pulses. Neurological System: Face is symmetrical. Cranial nerves II through XII are grossly intact. Strength is intact bilaterally. Proprioception and sensation are impaired on the right side compared to the left. Coordination remains impaired. Gait has improved. Mood and affect are appropriate. Psychiatric System: Conversation is rational Results - Labs CBC & BMP: 09/30/16 04:11 09/30/16 04:11 Lab Results: I have reviewed the past 24 hour labs Quality Measures - Stroke Onset of Symptoms Date: 09/27/16 Onset of Symptoms Time: 08:00
--- NOTE | 2016-09-30 13:38 | Magnetic Resonance Report ---
Exam: MR head/brain wo con Date: 09/30/2016 4:00 AM Comparison: CT brain 09/29/2016 Indication: Right-sided weakness and numbness, CVA Technique:[Axial acquisitions were obtained including sagittal T1, coronal T2 scans], and axial ADC, diffusion, FLAIR, T2, GRE, and T1 scans without contrast only. Scans were obtained on a 1.5 Carmen magnet. Findings: The ventricles remain normal in size with no midline displacement. The pituitary has a normal appearance and the cerebellar tonsils are normal in location. 90 acute ischemic infarction in the left temporo-occipital location. Small area of restricted diffusion in the left thalamus/posterior limb of the left internal capsule. No evidence of hemorrhage, mass, or extracerebral collection. Additional atrophy and scattered FLAIR/T2 hyperintensities. No acute findings in the paranasal sinuses, orbits, [place], or temporal bones. Impression: 90 mm acute ischemic infarction in the left temporo-occipital location. Additional acute to subacute lacunar infarcts in the left thalamus/posterior limb of the internal capsule. Additional atrophy and minimal microvascular disease. T2 hyperintensities can also be associated with demyelinating disease, vasculitis, viral illness, etc. PROCEDURE INTERPRETED AT [facility] DEPARTMENT OF RADIOLOGY Final Report Signed by: Dr. Cori Aguillon
--- NOTE | 2016-09-30 15:27 | ECHO Report ---
Darinel England Exam Date: 09/30/2016 14:32 Referring Physician: Technologist: pb Arellano ARDMS, RVT Age: 51 Ht (in): 66 Wt (lb): 182 Gender: M Exam Location: [facility] Echo Indications: Essential (primary) hypertension, Atrial fibrillation, CVA BP: 153 / 108 HR: 115 Rhythm: Atrial fibrillation Technical Quality: average IMPRESSIONS Left ventricular ejection fraction is estimated at greater than 65%. There is assymetric left ventricular hypertrophy with hypertrophy of the IVS and no evidence of LVOT obstruction or gradient. The patient is in atrial fibrillation and therefore has incomplete diastolic parameters. Tricuspid regurgitation velocities suggest a RVSP of 45 mmHg plus the right atrial pressure. MEASUREMENTS (Male / Female) Normal Values 2D ECHO LV Diastolic Diameter PLAX 3.5 cm 4.2 - 5.9 / 3.9 - 5.3 cm LV Systolic Diameter PLAX 1.9 cm LV Fractional Shortening PLAX 46.0 % IVS Diastolic Thickness 2.6 cm 0.6 - 1.0 / 0.6 - 0.9 cm LVPW Diastolic Thickness 2.1 cm 0.6 - 1.0 / 0.6 - 0.9 cm RV Internal Dim ED PLAX 3.4 cm Aortic Root Diameter 3.2 cm LA Systolic Diameter LX 5.4 cm 3.0 - 4.0 / 2.7 - 3.8 cm DOPPLER TR Peak Velocity 337.0 cm/s TR Peak Gradient 45.4 mmHg FINDINGS Left Ventricle The left ventricular cavity is small. There is assymetric left ventricular hypertrophy with hypertrophy of the IVS and no evidence of LVOT obstruction or gradient. No ROBBY noted. The IVS has a hyperechoic testure. Left ventricular ejection fraction is estimated at greater than 65%. The patient is in atrial fibrillation and therefore has incomplete diastolic parameters. Right Ventricle The right ventricle is normal in size and function. Right Atrium The right atrium is normal in size. Left Atrium Moderately increased left atrial size. Mitral Valve Morphologically normal mitral valve. Mild mitral valve regurgitation. Aortic Valve Aortic valve sclerosis. No aortic valve regurgitation. Tricuspid Valve Morphologically normal tricuspid valve. Mild tricuspid valve regurgitation. Tricuspid regurgitation velocities suggest a RVSP of 45 mmHg plus the right atrial pressure.. Pulmonic Valve Morphologically normal pulmonic valve. Mild pulmonary valve regurgitation. Pericardium Normal pericardium without effusion. Aorta Normal ascending aorta dimension. Gloria French (Electronically Signed) Final Date: 30 September 2016 15:26
--- NOTE | 2016-09-30 16:54 | Neurology Consult Note ---
History of Present Illness History of present illness: Mr. England is a 51-year-old right-handed -[place] gentleman with history of hypertension, hyperlipidemia and A. fib admitted by the hospitalist service with acute onset of right-sided weakness numbness and vision difficulties started on Friday. Patient reported that he woke up Friday morning with weakness and numbness in the right upper and lower extremity. He also reporting that there is some problem with the vision as well. He denies any speech difficulties, swallowing difficulties. Over the period of time his symptoms progressed and he came to the hospital for further evaluation. MRI of the brain performed revealed moderate sized left acute temporoparietal infarct. Carotid ultrasound is unremarkable. Echo showed ejection fraction of 65%. Patient is able to get up and walk without any assistance. Patient does admit that he smokes and drinks alcohol on a regular basis and occasionally smokes marijuana. Home Medications Medication Instructions Recorded Confirmed Type Atorvastatin [Lipitor] 10 mg PO BEDTIME 09/29/16 09/29/16 History Carvedilol [Coreg] 6.25 mg PO BID 09/29/16 09/29/16 History Furosemide Tab [Lasix Tab] 40 mg PO DAILY 09/29/16 09/29/16 History Lisinopril/Hydrochlorothiazide 1 each PO DAILY 09/29/16 09/29/16 History [Lisinopril-Hctz 10-12.5 mg Tab] Allergies Allergy/AdvReac Type Severity Reaction Status Date / Time No Known Allergies Allergy Verified 12/24/15 10:20 12 point system: reviewed and no additional remarkable complaints except as stated Medical,Surgical,& Family Hx - Medical History Cardio: History of: Cardiac Dysrhythmia, Hypertension Endocrine: History of: Dyslipidemia - Family History Family History: Reports;: Family Cancer - Social History Smoking Status: Current every day smoker Frequency of Alcohol Use: Occasionally Type of Drug Use: Opiates, Marijuana Exam - Constitutional Vitals: Period Temp Pulse Resp BP Sys/Castellanos Pulse Ox Last 24 Hr 96.8 F-97.9 F 89-95 14-20 135-161/80-108 94-98 Exam: GENERAL: Patient is in no acute distress. NECK: Neck is supple. There is no JVD. No carotid bruits present. No thyroid masses. CVS: First and second heart sounds are normal. There is no S3 present. Regular rate and rhythm. RESPIRATORY: Lungs are clear to auscultation without any rales or rhonchi. ABDOMEN: Soft and non-tender. Bowel sounds are present. There is no hepatosplenomegaly. EXT: There is no palpable edema. Peripheral pulses are present. Skin: No rashes Central Nervous system: General: Alert, awake and Oriented x 3 Speech: Fluent Comprehension: Intact and normal Facial expressions: Normal Cranial Nerves: CN1/Olfactory: Normal CN II/ Optic: Normal, Visual Gatica; right homonymous hemianopia CN III, and : ALMA & EOMI CN V: Normal & intact CN VII: face is symmetric CNVIII: Normal CN XI/X/XI/XII: Intact and Normal Motor: Bulk and Tone is normal. Strength in the right 5/5 Strength in the left 5/5 Sensory: Grossly intact for all the modalities of PP, LT and temp sense Reflexes: 1+ and symmetrical Cerebellar function: Normal finger to nose and heel to cadena testing. Toes: Equivocal Gait: Able to get up and walk Results - Labs CBC & BMP: 09/30/16 04:11 09/30/16 04:11 Assessment and Plan (1) Acute CVA (cerebrovascular accident) Status: Acute Assessment and plan: Continue Eliquis She does not need inpatient rehabilitation. Discussed all the stroke risk factors in detail with the patient and his family Answered all the questions to their satisfaction Should be able to go home in the morning No driving for at least 6-8 weeks Follow-up in 4 weeks Okay to go home in the morning if okay with PCP Thank you for the consult Current Visit: Yes (2) Tobacco abuse Status: Chronic Assessment and plan: Counseled him regarding cessation of smoking Current Visit: Yes (3) Cannabis use disorder, mild, abuse Status: Chronic Assessment and plan: Counseled him regarding cessation of all the drug abuse to prevent any further strokes Current Visit: Yes
[2016-09-30] MEDS: BENZONATATE 100 MG CAPSULE PO PRN (18:55)
[2016-09-30] MEDS: ATORVASTATIN 10 MG TABLET PO SCH (21:06)
[2016-09-30] MEDS: CARVEDILOL 12.5 MG TABLET PO SCH (21:06)
[2016-10-01] MEDS: ALBUTEROL/IPRATROPIUM 3 ML NEB RESP TX PRN (07:39)
[2016-10-01] MEDS: LISINOPRIL/HCTZ 10-12.5 MG TABLET PO SCH (08:10)
[2016-10-01] MEDS: APIXABAN 5 MG TABLET PO SCH (08:10)
[2016-10-01] MEDS: CARVEDILOL 12.5 MG TABLET PO SCH (08:10)
[2016-10-01] MEDS: AZITHROMYCIN 250 MG TABLET PO SCH (08:10)
[2016-10-01] MEDS: amLODIPine 2.5 MG TABLET PO SCH (08:10)
[2016-10-01] MEDS: PANTOPRAZOLE 40 MG TABLET PO SCH (08:10)
[2016-10-01] MEDS: BENZONATATE 100 MG CAPSULE PO PRN (08:13)
--- NOTE | 2016-10-01 10:34 | Cardiology Progress Note ---
Assessment and Plan - Time spent with patient Time spent with patient: Less than 30 minutes (1) Atrial fibrillation Status: Acute Assessment and plan: See plan of care listed below. Current Visit: Yes Qualifiers: Atrial fibrillation type: persistent Qualified Code(s): I48.1 - Persistent atrial fibrillation (2) Cerebrovascular accident Status: Acute Assessment and plan: See plan of care listed below. Current Visit: Yes (3) Hypertension Status: Chronic Assessment and plan: See plan of care listed below. Current Visit: Yes Qualifiers: Hypertension type: essential hypertension Qualified Code(s): I10 - Essential (primary) hypertension (4) Tobacco abuse Status: Chronic Assessment and plan: See plan of care listed below. Current Visit: Yes (5) Cannabis use disorder, mild, abuse Status: Chronic Assessment and plan: See plan of care listed below. Current Visit: Yes (6) Hyperlipidemia Status: Chronic Assessment and plan: See plan of care listed below. Current Visit: Yes Qualifiers: Hyperlipidemia type: mixed hyperlipidemia Qualified Code(s): E78.2 - Mixed hyperlipidemia Cardiology - PN: Subj Interval history: Retail Analyst: new to Dr. Greenberg Mr. England is a 51-year-old -[place] male smoker with uncontrolled hypertension and atrial fibrillation who presented to the hospital on 09/28/2016 with poor coordination of his right side and was found to have a subacute left stroke on CT scan. We are consulted to see him due to atrial fibrillation and stroke. He has not previously been on anticoagulation. He was started on full dose Eliquis for stroke prevention. He has been on Coreg 6.25 mg p.o. twice daily; we increased this dose for better HR control. His TSH was normal. He did have some flat elevation of troponins. He denies any chest pain, shortness of breath, palpitations. He does complain of cough and chest congestion. He does have a productive cough of white sputum. Has been afebrile since admission. He does have as needed breathing treatments ordered as well as Tessalon Perles for cough and he has also been started on a Z-Дмитрий. Mr. England reports he is feeling well today. He has been working with physical therapy and has been ambulating without difficulty. Neurology has seen him in consultation and determined he would not require inpatient rehabilitation. His heart rates and blood pressures are better controlled today with the increase of his Coreg. Echocardiogram done 09/30/2016 revealed EF greater than 65%, assymetric left ventricular hypertrophy with hypertrophy of the IVS and no evidence of LVOT obstruction or gradient, tricuspid regurgitation velocities suggest a RVSP of 45 mmHg plus RAP. ASSESSMENT/PLAN: 1. ATRIAL FIBRILLATION -this is apparently persistent and has been known per his records for the past 5 years. Mr. England tells me that he has had a documented "irregular heartbeat" since 1999 for her 2005. He will need anticoagulation for minimum of 3 months if zoroastrianism of normal sinus rhythm is attempted and he could potentially be off; for now it is recommended he continue anticoagulation for life. Will further discuss with Dr. French and await his recommendations. 2. CEREBROVASCULAR ACCIDENT -neurology has seen him and determined he does not require inpatient rehabilitation. He was started on Eliquis 5 mg p.o. twice daily. Physical and Occupational Therapy have been working with him. 3. HYPERTENSION -this has been uncontrolled. We will continue to monitor and adjust medications accordingly. 4. TOBACCO ABUSE -greater than 5 minutes was spent discussing the need for total tobacco cessation and the patient agrees. He reports he does not think this will be a problem for him. 5. CANNABIS USE -he agrees he must stop all smoking. 6. HYPERLIPIDEMIA -continue lipid lowering agent. Exam (Progress Note) - Constitutional Vitals: Period Temp Pulse Resp BP Sys/Castellanos Pulse Ox Last 24 Hr 96.2 F-97.5 F 84-96 18-20 124-150/70-87 94-98 Exam: General: Present: Appears Well, No Apparent Distress. Pleasant and cooperative. Appears comfortable. HEENT: Present: PERRL, Normocephaly, atraumatic. Mucus Membranes Moist. No jaundice noted. Conjunctiva moist and clear, sclerae anicteric Neck: Present: Supple Neck, Midline Trachea, No Masses, No Bruit, No tenderness Cardiac: Present: Irregular Rate and Rhythm, No Murmur Lungs: Present: Scattered rhonchi, cleared with cough. Scattered expiratory wheezes posteriorly. Otherwise clear to auscultation bilaterally, no rales. Neuro: Present: Awake, alert, and oriented x3. Moves all extremities well without hemiparesis or paralysis. Decreased right-sided coordination grossly Intact. Absent: Resting Tremor, Essential Tremor Abdomen: Present: Soft, Active Bowel Sounds, No Masses, Non-Tender, nondistended. No abdominal bruit or thrill noted. Skin: Present: Clear. Absent: Rash, No skin breakdown. Back: Normal inspection, no vertebral tenderness. Musculoskeletal: Present: No Fluid Collection, No Pain, Normal Range of Motion Extremities: Present: Normal Gait, No Clubbing, No Cyanosis, Upper Extr. Pulses 2+, Lower Extr. Pulses 2+, No edema. Capillary refill less than 3 seconds. Result/EKG - Labs CBC & BMP: 09/30/16 04:11 09/30/16 04:11 Lab Results: I have reviewed the past 24 hour labs - EKG EKG results: interpreted by me EKG shows: atrial fibrillation Quality Measures - Stroke Onset of Symptoms Date: 09/27/16 Onset of Symptoms Time: 08:00 Specialty Discharge - Follow Up or Referrals
[2016-10-01 11:46] VITALS: BP 126/90
--- NOTE | 2016-10-01 12:36 | Discharge Summary ---
Hospital Course - Hospital Course Hospital Course: Mr. England was admitted to the hospital with a left brain stroke causing right upper and lower extremity weakness, numbness, discoordination. He was found to have a acute stroke on CT and MRI of the brain. Echocardiogram and carotid ultrasound were unremarkable and showed no central source of embolic phenomena. The patient does have atrial fibrillation and was not previously anticoagulated. His atrial fib is rate controlled on beta-blockers. He was started on Eliquis 5 mg twice daily. He was seen in consultation by cardiology and neurology. He was deemed well enough to go home and not a candidate for inpatient rehabilitation. He was given instructions not to drive for the next 6 -8 weeks with outpatient follow-up with his neurologist. He will need outpatient PT OT. His home medications were reviewed and reconciled. He is a full code. - Time spent with patient Time with patient DS: Greater than 30 minutes (Total discharge time for this patient, including [id number] time, clinical documentation, medication reconciliation, and discharge planning was 39 minutes.) Diagnosis - Discharge Diagnosis (1) Cerebrovascular accident Status: Acute (2) Subacute left occipital lobe infarct Status: Acute (3) Hypertension Status: Chronic (4) Hyperlipidemia Status: Chronic (5) A-fib Status: Acute (6) Tobacco abuse Status: Chronic (7) Cannabis use disorder, mild, abuse Status: Chronic Specialty Discharge - Follow Up or Referrals Discharge Plan - Discharge Data Disposition: Disch To Home/Self Care Condition at Discharge: Stable Discharge Diet: heart healthy Activity: resume usual activities as tolerated, as per physical therapy Hygiene: no restrictions - Discharge Medications New Apixaban [Eliquis] 5 mg PO BID #60 tablet Azithromycin Tab [Zithromax Tab] 500 mg PO DAILY #3 tablet amLODIPine [Norvasc] 2.5 mg PO BID #60 tablet Continue Furosemide Tab [Lasix Tab] 40 mg PO DAILY Carvedilol [Coreg] 6.25 mg PO BID Lisinopril/Hydrochlorothiazide [Lisinopril-Hctz 10-12.5 mg Tab] 1 each PO DAILY Changed Atorvastatin [Lipitor] 40 mg PO BEDTIME #30 - Follow Up or Referral Follow Up: Fam Melendez MD [Physician] - 1 Month - Forms/Instructions Instructions: Atrial Fibrillation (DC), Ischemic Stroke (DC) Exam - Constitutional Vitals: Period Temp Pulse Resp BP Sys/Castellanos Pulse Ox Last 24 Hr 96.2 F-97.5 F 79-96 18-20 124-150/70-90 94-98 DS: Provider Date of admission: 09/29/16 10:35 Primary care physician: . No PCP Attending physician on admission: Patrick Dennis MD Consults: 09/29/16 11:36 Consult to Case Mgmt/Social Srvs [CONS] Routine Reason for Case Mgmt/Social Srvs: Discharge Planning Consult to Occupational Therapy [CONS] Routine Reason for Occupational Therapy: Evaluate and Treat Consult Comment: Stroke Consult to Physical Therapy [CONS] Routine Reason for Physical Therapy: Evaluate and Treat Consult Comment: stroke Consult to Physician [CONS] Routine Comment: acute left brain stroke Consulting Provider: Fam Melendez Consult to Specialist Group: Neurology Person Notified: LAUREN Date Notified: 09/30/16 Time Notified: 08:40 09/29/16 11:40 Consult to Physician [CONS] Routine Comment: afib with cva Consulting Provider: Cardiology - [facility] Discharging clinician: Patrick Dennis MD Expected date of discharge: 10/01/16
== END 2016-10-01 14:45 | disposition home or self-care (01) | DRG 65 ==
LOC: N.ED 09:30 → N.EDINP 10:35 → N.TELEN 12:21
PROVIDERS: ADMIT Family Medicine; ATTEND Family Medicine

== ENCOUNTER 2020-03-30 12:58 | Inpatient (IN) ==
[2020-03-30] MEDS ORDERED: DEXTROSE 50% 25 GM/50 ML VIAL IV PRN (17:51)
[2020-03-30] MEDS ORDERED: ACETAMINOPHEN 325 MG TABLET PO PRN (17:51)
[2020-03-30] MEDS ORDERED: GLUCAGON 1 MG VIAL IM PRN (17:51)
[2020-03-30] MEDS ORDERED: ONDANSETRON 4 MG/2 ML VIAL IV PRN (17:51)
[2020-03-30 17:52] LABS: Basophils % 0.6 % (0.0-0.8); Eosinophils # 0.1 10*3/uL (0.0-0.87); Hematocrit 43.3 VOL% (42.0-52.0); Hemoglobin 13.3 GM/DL (14.0-18.0); Immature Granulocytes % 0.4 %; Immature Granulocytes Absolute 0.02 #; Lymphocytes # 0.7 10*3/uL (1.4-4.0); Lymphocytes % 14.4 % (21.2-54.2); Mean Corpuscular HGB Conc 30.7 GM/DL (32-36); Mean Corpuscular Volume 77.3 FL (87-102); Mean Platelet Volume 11.3 FL (9.6-12.0); Monocytes % 7.8 % (1.7-12.7); NRBC # 0.07 10*3/uL; Neutrophils % 74.8 % (38.7-73.9); Platelet Count 334 T/CUMM (130-400); Red Cell Distribution Width 16.2 % (9.3-17.3)
[2020-03-30] MEDS ORDERED: FUROSEMIDE 40 MG/4 ML VIAL IV ONE (17:54)
[2020-03-30] MEDS ORDERED: hydrALAZINE 20 MG/1 ML VIAL IV PRN (17:56)
[2020-03-30 18:30] LABS: Albumin 2.8 G/DL (3.4-5.0); Bilirubin,Direct 0.41 MG/DL (0.0-0.20); Bilirubin,Indirect 0.9 MG/DL (0.0-1.0); Bilirubin,Total 1.3 MG/DL (0.2-1.0); Calcium 8.5 MG/DL (8.5-10.1); Osmolality,Calculated 274.8 MOS/KG (273-304); Total Protein 6.3 G/DL (6.4-8.3)
[2020-03-30 18:46] LABS: Bacteria,Urine Occasional /HPF (Few); Bilirubin,Urine Negative (Negative); Blood, Urine Negative (Negative); Glucose,Urine (UA) Negative (Negative); Ketones,Urine Negative (Negative); Nitrite,Urine Negative (Negative); Protein,Urine 30 MG/DL; RBC,Urine 2 /HPF (0-4); Urine Appearance CLEAR (Clear); Urine Color Straw (Yellow); Urine Specific Gravity 1.004 (1.001-1.035); Urine Urobilinogen < 2.0 EU/DL (0.2-1.0); WBC,Urine 6 /HPF (0-6)
[2020-03-30] MEDS: carvediloL 12.5 MG TABLET PO SCH (20:25)
[2020-03-30] MEDS: APIXABAN 5 MG TABLET PO SCH (20:26)
[2020-03-30] MEDS: ZALEPLON 5 MG CAPSULE PO SCH (20:26)
[2020-03-30] MEDS: cloNIDine 0.1 MG TABLET PO SCH (20:26)
[2020-03-30] MEDS: NICOTINE 14 MG/24 HR PATCH TRANSDERM SCH (20:26)
[2020-03-30] MEDS: BUDESONIDE/FORMOTEROL 160-4.5 INHALER 6 GM INH SCH (20:27)
[2020-03-30] MEDS: ALBUTEROL 2.5 MG/3 ML NEB RESP TX PRN (21:00)
[2020-03-31 05:41] LABS: Basophils % 0.7 % (0.0-0.8); Eosinophils # 0.1 10*3/uL (0.0-0.87); Eosinophils % 2.2 % (0.00-10.9); Hematocrit 42.6 VOL% (42.0-52.0); Hemoglobin 13.4 GM/DL (14.0-18.0); Immature Granulocytes % 0.2 %; Immature Granulocytes Absolute 0.01 #; Lymphocytes # 0.8 10*3/uL (1.4-4.0); Lymphocytes % 17.1 % (21.2-54.2); Mean Corpuscular HGB Conc 31.5 GM/DL (32-36); Mean Corpuscular Volume 76.5 FL (87-102); Mean Platelet Volume 11.5 FL (9.6-12.0); Monocytes % 8.1 % (1.7-12.7); NRBC # 0.06 10*3/uL; Neutrophils % 71.7 % (38.7-73.9); Platelet Count 311 T/CUMM (130-400); Red Blood Count 5.57 MC/CUMM (3.8-5.5); Red Cell Distribution Width 16.7 % (9.3-17.3); White Blood Count 4.6 T/CUMM (4-12)
[2020-03-31 06:16] LABS: Albumin 2.8 G/DL (3.4-5.0); Bilirubin,Direct 0.39 MG/DL (0.0-0.20); Bilirubin,Indirect 1.1 MG/DL (0.0-1.0); Bilirubin,Total 1.5 MG/DL (0.2-1.0); Osmolality,Calculated 274.8 MOS/KG (273-304); Total Protein 6.3 G/DL (6.4-8.3)
[2020-03-31 06:24] LABS: Risk Ratio 2.76; Thyroid Stimulating Hormone 2.34 uIU/ml (0.358-3.74); VLDL CHOLESTEROL 14.6 MG/DL
[2020-03-31] MEDS ORDERED: ENOXAPARIN 30 MG/0.3 ML SYRINGE SUBCUT SCH (09:00)
[2020-03-31] MEDS ORDERED: LOSARTAN 50 MG TABLET PO SCH (09:00)
[2020-03-31] MEDS ORDERED: DOXAZOSIN 1 MG TABLET PO SCH ×2 (09:00→21:00)
[2020-03-31] MEDS: FUROSEMIDE 40 MG/4 ML VIAL IV SCH ×2 (09:07→15:49)
[2020-03-31] MEDS: BUDESONIDE/FORMOTEROL 160-4.5 INHALER 6 GM INH SCH ×3 (09:08→21:28)
[2020-03-31] MEDS: TAMSULOSIN 0.4 MG CAPSULE PO SCH (09:08)
[2020-03-31] MEDS: APIXABAN 5 MG TABLET PO SCH ×2 (09:08→20:47)
[2020-03-31] MEDS: carvediloL 12.5 MG TABLET PO SCH (09:08)
[2020-03-31] MEDS: cloNIDine 0.1 MG TABLET PO SCH ×3 (09:08→20:46)
[2020-03-31] MEDS: NICOTINE 14 MG/24 HR PATCH TRANSDERM SCH (09:12)
[2020-03-31] MEDS ORDERED: metOLazone 5 MG TABLET PO ONE (11:23)
[2020-03-31] MEDS: LOSARTAN 50 MG TABLET PO SCH (20:46)
[2020-03-31] MEDS: ZALEPLON 5 MG CAPSULE PO SCH (20:46)
[2020-03-31] MEDS: carvediloL 25 MG TABLET PO SCH (20:47)
[2020-03-31] MEDS ORDERED: DOXAZOSIN 2 MG TABLET PO SCH (21:00)
[2020-04-01 06:25] LABS: Basophils % 0.7 % (0.0-0.8); Eosinophils # 0.2 10*3/uL (0.0-0.87); Eosinophils % 4.3 % (0.00-10.9); Hematocrit 41.8 VOL% (42.0-52.0); Hemoglobin 12.9 GM/DL (14.0-18.0); Immature Granulocytes % 0.5 %; Immature Granulocytes Absolute 0.02 #; Lymphocytes # 0.7 10*3/uL (1.4-4.0); Lymphocytes % 15.6 % (21.2-54.2); Mean Corpuscular HGB Conc 30.9 GM/DL (32-36); Mean Corpuscular Volume 77.1 FL (87-102); Mean Platelet Volume 10.4 FL (9.6-12.0); Monocytes % 10.8 % (1.7-12.7); NRBC # 0.06 10*3/uL; Neutrophils % 68.1 % (38.7-73.9); Platelet Count 290 T/CUMM (130-400); Red Blood Count 5.42 MC/CUMM (3.8-5.5); Red Cell Distribution Width 16.2 % (9.3-17.3); White Blood Count 4.2 T/CUMM (4-12)
[2020-04-01 06:41] LABS: Albumin 2.6 G/DL (3.4-5.0); Bilirubin,Direct 0.25 MG/DL (0.0-0.20); Bilirubin,Indirect 0.9 MG/DL (0.0-1.0); Bilirubin,Total 1.1 MG/DL (0.2-1.0); Calcium 8.8 MG/DL (8.5-10.1); Total Protein 5.9 G/DL (6.4-8.3)
[2020-04-01] MEDS: cloNIDine 0.1 MG TABLET PO SCH ×3 (09:42→20:34)
[2020-04-01] MEDS: carvediloL 25 MG TABLET PO SCH ×2 (09:43→20:34)
[2020-04-01] MEDS: APIXABAN 5 MG TABLET PO SCH ×2 (09:43→20:36)
[2020-04-01] MEDS: LOSARTAN 50 MG TABLET PO SCH ×2 (09:43→20:35)
[2020-04-01] MEDS: TAMSULOSIN 0.4 MG CAPSULE PO SCH (09:43)
[2020-04-01] MEDS: FUROSEMIDE 40 MG/4 ML VIAL IV SCH ×2 (09:44→15:35)
[2020-04-01] MEDS: BUDESONIDE/FORMOTEROL 160-4.5 INHALER 6 GM INH SCH ×2 (09:46→20:36)
[2020-04-01] MEDS: NICOTINE 14 MG/24 HR PATCH TRANSDERM SCH (09:47)
[2020-04-01] MEDS: DOXAZOSIN 1 MG TABLET PO SCH ×2 (11:08→20:35)
[2020-04-01] MEDS ORDERED: cefTRIAXone 1,000 MG in SYRINGE 1 EACH IV SCH (11:30)
[2020-04-01] MEDS: ZALEPLON 5 MG CAPSULE PO SCH (20:34)
[2020-04-01] MEDS: ALBUTEROL 2.5 MG/3 ML NEB RESP TX PRN (21:52)
[2020-04-02 05:33] LABS: Basophils % 0.6 % (0.0-0.8); Eosinophils # 0.2 10*3/uL (0.0-0.87); Hematocrit 44.3 VOL% (42.0-52.0); Hemoglobin 13.6 GM/DL (14.0-18.0); Immature Granulocytes % 0.9 %; Immature Granulocytes Absolute 0.05 #; Lymphocytes # 0.8 10*3/uL (1.4-4.0); Lymphocytes % 15.4 % (21.2-54.2); Mean Corpuscular HGB Conc 30.7 GM/DL (32-36); Mean Platelet Volume 10.9 FL (9.6-12.0); Monocytes % 10.3 % (1.7-12.7); NRBC # 0.03 10*3/uL; Neutrophils % 69.8 % (38.7-73.9); Platelet Count 288 T/CUMM (130-400); Red Blood Count 5.75 MC/CUMM (3.8-5.5); Red Cell Distribution Width 16.1 % (9.3-17.3); White Blood Count 5.3 T/CUMM (4-12)
[2020-04-02 05:42] LABS: Calcium 8.8 MG/DL (8.5-10.1); Osmolality,Calculated 277.1 MOS/KG (273-304)
[2020-04-02] MEDS: DOXAZOSIN 1 MG TABLET PO SCH (09:27)
[2020-04-02] MEDS: cloNIDine 0.1 MG TABLET PO SCH (09:27)
[2020-04-02] MEDS: APIXABAN 5 MG TABLET PO SCH (09:27)
[2020-04-02] MEDS: LOSARTAN 50 MG TABLET PO SCH (09:27)
[2020-04-02] MEDS: FUROSEMIDE 40 MG/4 ML VIAL IV SCH (09:27)
[2020-04-02] MEDS: TAMSULOSIN 0.4 MG CAPSULE PO SCH (09:27)
[2020-04-02] MEDS: carvediloL 25 MG TABLET PO SCH (09:27)
[2020-04-02] MEDS: BUDESONIDE/FORMOTEROL 160-4.5 INHALER 6 GM INH SCH (09:29)
[2020-04-02] MEDS: NICOTINE 14 MG/24 HR PATCH TRANSDERM SCH (09:31)
[2020-04-02 10:08] VITALS: BP 125/85
[2020-04-02] MEDS ORDERED: FUROSEMIDE 40 MG TABLET PO SCH (16:00)
== END 2020-04-02 12:42 | disposition home or self-care (01) | DRG 291 ==
LOC: N.TELEN
PROVIDERS: ADMIT Internal Medicine; ATTEND Internal Medicine